=== PATIENT | male | born 1975 | race Caucasian/White ===

== ENCOUNTER 2022-04-14 05:26 | Emergency (ER) | payer SELFPAY ==
[~2022-04-14] VITALS: Ht 180.3 cm; Wt 81.1 kg
[2022-04-14 09:31] LABS: Urine Bacteria MOD /hpf (None Seen); Urine Blood 3+ /uL (Negative); Urine Specific Gravity 1.021 (1.001-1.035); Urine WBC 712 /hpf (0 - 3)
[2022-04-14] MEDS ORDERED: CIPR-173 PO (09:42)
[2022-04-14 09:47] LABS: Basophils # (auto) 0 10 ^3/uL (0-0.2); Basophils % (auto) 0.4 % (0.0-2.0); Eosinophils # (auto) 0.2 10 ^3/uL (0-0.8); Eosinophils % (auto) 3.5 % (0.0-7.0); Hematocrit 45.2 % (41.0-53.0); Hemoglobin 15.1 g/dL (13.5-17.5); Lymphocytes % (auto) 14.3 % (10.0-50.0); Mean Corpuscular Hemoglobin 30.8 pg (28.0-32.0); Mean Corpuscular Hgb Conc. 33.5 g/dL (32.0-36.0); Mean Corpuscular Volume 91.8 fL (80.0-100.0); Monocytes # (auto) 0.4 10 ^3/uL (0-1.3); Monocytes % (auto) 6.2 % (0.0-12.0); Neutrophils # (auto) 5.1 10 ^3/uL (1.6-8.6); Neutrophils % (auto) 75.6 % (37.0-80.0); Red Blood Cells 4.92 10^6/uL (4.5-5.90); Red Cell Distribution Width 13.3 % (11.8-14.3); White Blood Cell 6.8 10^3/uL (4.4-10.8)
[2022-04-14 09:52] LABS: Albumin 4.3 g/dL (3.4-5.0); Calcium 9.2 mg/dL (8.5-10.1); Potassium 5.3 mmol/L (3.5-5.1)
[2022-04-14 09:55] LABS: BUN/Creatinine Ratio 13.6; Bilirubin, Total 0.9 mg/dL (0.2-1.0); Total Protein 7.6 g/dL (6.4-8.2)
[2022-04-14] MEDS ORDERED: SODIUM ZIRCONIUM CYCL 10 GM PAK PO ONE (10:45)
[2022-04-14] MEDS ORDERED: FUROSEMIDE 20 MG/2 ML VIAL IV ONE (10:45)
[2022-04-14] MEDS ORDERED: DEXTROSE (50%) 50ML SYRG IV ONE (10:45)
[2022-04-14] MEDS ORDERED: SODIUM BICARBONATE 8.4% INJ 50ML SYRINGE IV ONE (10:45)
[2022-04-14] MEDS ORDERED: InsuLIN REG 1unit/0.01ml Soln (100units/ml) IV ONE (10:45)
[2022-04-14] MEDS ORDERED: cefTRIAXone 1GM/50ML D5W 50 ML IV ONE (10:45)
[2022-04-14] MEDS ORDERED: CALCIUM GLUC 1,000mg/50ml-NS 50 ML IV ONE (10:45)
[2022-04-14 16:53] VITALS: BP 156/73
== END 2022-04-14 16:57 | disposition home or self-care (01) ==
LOC: ER 05:26
DX: N39.0 Urinary tract infection, site not specified (principal); E87.5 Hyperkalemia
CPT/HCPCS: 36415; 74176; 80053; 81001; 84132; 84484; 85025